=== PATIENT | female | born 1990 | race Caucasian/White ===

== ENCOUNTER → 2017-06-07 13:08 | Observation (INO) ==
--- NOTE | 2017-06-07 11:53 | Discharge Summary ---
Date of Encounter: 06/07/17 Time of Encounter: 11:55 - Discharge Diagnosis (1) Complete placenta previa with hemorrhage, third trimester Priority: Primary Status: Acute Comments: Ms Platt is a 26 year old with a history of a 20 week demise and an that presents by squad to triage with c/o bleeding and leaking of fluid starting at 1030 this morning. She states that she is seen by the clinic at [facility] and was told she has a complete previa. She denies intercourse in the past 48 hours. She states positive movement. She denies headache, visual disturbances, epigastric pain, abdominal pain, and abdominal cramping. She has not had steroids for lung development in this . Discussed POC with Dr Harvey who examined the patient himself. Transfer to [facility] for continuation of care. Betamethasone 12mg IM given CBC drawn and pending IV catheter placed - LR running at 125ml/hr Called [facility] for transfer, spoke with charge nurse who states they are currently full and accepting no patients at this time. She gave me the number to their high risk physician electronics department manager. I called Dr Parikh, the high risk physician with [facility] who did not answer the phone. Called [facility] and spoke with the resident electronics department manager who accepted the transfer. Patient agreeable to transfer to [facility]. (2) 29 weeks gestation of Priority: Secondary Status: Acute (3) complicated by subutex maintenance, antepartum Priority: Secondary Status: Acute Comments: Patient has Rx for subutex and is taking during this (4) Cigarette nicotine dependence Priority: Secondary Status: Acute Comments: Current every day smoker. Qualifiers: Substance use status: uncomplicated Qualified Code(s): F17.210 - Nicotine dependence, cigarettes, uncomplicated - Discharge Medications Home Medications: Buprenorphine HCl [Subutex] 8 mg SL BID 06/07/17 [History] Vit Calc,Iron,Folic [ Vitamins] 1 tab PO DAILY 06/07/17 [ History] Allergies/Adverse Reactions: 3 Allergy/AdvReac Type Severity Reaction Status Date / Time No Known Allergies Allergy Verified 06/07/17 12:01 Date of admission: 06/07/17 11:37 Discharging clinician: Clarissa Ramos Anticipated date of discharge: 06/07/17 - Patient Status Disposition: Transfer Other Condition: Fair Functional capacity at discharge: bed bound Overall status at discharge: patient is not back to baseline - Discharge Instructions Hospital Course INDUCTION BRAZER Time spent discussing smoking cessation with patient: 3 to 10 minutes Time Attestation: Total time spent providing and/or coordinating discharge services: Time Spent: Less than 30 minutes Exam - Constitutional General appearance IM: cooperative, A&O X 3, pleasant - Respiratory Respiratory exam: Present: CTAB - Cardiovascular Cardiovascular exam IM: Present: RRR, +S1, +S2 - GI/Abdominal GI/Abdominal exam IM: normal bowel sounds, soft - Additional comments: Uterus nontender, appropriate for gestational age. Patient states she has a placenta previa. Small amount of zoe and clotted blood noted in the vaginal vault on SSE. No pooling of fluid noted. No cervival exam done. FHTS 160's with moderate variability. No contractions per patient report or toco. Uterus soft and nontender - Extremities Exam Extremities exam IM: Present: normal capillary refill, normal inspection, radial pulses palpable and symmetrical - Neurological Exam Neurological exam: alert, oriented X3, reflexes normal - VTE Reasons for not Prescribing Prophylaxis: Treatment not Indicated - Low risk for VTE
[2017-06-07 12:26] LABS: Basophils % 0.2 %; Eosinophils # 0.2 K/mcL (0.0-0.6); Eosinophils % 1.3 %; Hematocrit 34.8 % (35.3-44.9); Hemoglobin 11.4 g/dL (11.5-15.4); Immature Granulocytes % 0.6 % (0-4); Lymphocytes # 2.4 K/mcL (0.6-4.6); Lymphocytes % 15.8 %; Mean Corpuscular HGB Conc 32.8 g/dL (31.6-35.5); Mean Corpuscular Hemoglobin 28.4 pg (28.0-33.3); Mean Corpuscular Volume 86.8 fL (83.0-100.0); Mean Platelet Volume 9.7 fL (9.4-12.4); Monocytes # 0.8 K/mcL (0.0-1.3); Monocytes % 5.2 %; Neutrophils # 11.5 K/mcL (1.6-8.9); Platelet Count 242 K/mcL (140-400); Red Blood Count 4.01 M/mcL (3.82-4.97); Red Cell Distribution Width 12.6 % (11.5-14.5); Segmented Neutrophils % 76.9 %
[~2017-06-07 13:08] MED LIST: Betamethasone Acet/SodPhos 6 MG/ML MDV IM SCH; Ringers Solution, Lactated 1,000 ML IVC SCH
== END | disposition other institution (70) ==
LOC: 1NENULAB
PROVIDERS: ADMIT Obstetrics & Gynecology; ATTEND Obstetrics & Gynecology

== ENCOUNTER → 2017-06-29 05:02 | Observation (INO) ==
[2017-06-29 03:12] LABS: Basophils % 0.1 %; Eosinophils # 0.2 K/mcL (0.0-0.6); Eosinophils % 1.5 %; Hematocrit 34.1 % (35.3-44.9); Hemoglobin 11.3 g/dL (11.5-15.4); Immature Granulocytes % 0.5 % (0-4); Lymphocytes % 19.5 %; Mean Corpuscular HGB Conc 33.1 g/dL (31.6-35.5); Mean Corpuscular Hemoglobin 28.7 pg (28.0-33.3); Mean Corpuscular Volume 86.5 fL (83.0-100.0); Mean Platelet Volume 9.6 fL (9.4-12.4); Monocytes # 0.9 K/mcL (0.0-1.3); Monocytes % 5.7 %; Neutrophils # 11.3 K/mcL (1.6-8.9); Platelet Count 222 K/mcL (140-400); Red Blood Count 3.94 M/mcL (3.82-4.97); Red Cell Distribution Width 12.8 % (11.5-14.5); Segmented Neutrophils % 72.7 %
--- NOTE | 2017-06-29 03:47 | OB/GYN History & Physical ---
Date of Encounter: 06/29/17 Time of Encounter: 03:15 Assessment and Plan (1) 33 weeks gestation of Current visit: Yes Status: Acute (2) Cigarette nicotine dependence Current visit: No Status: Acute Qualifiers: Substance use status: uncomplicated Qualified Code(s): F17.210 - Nicotine dependence, cigarettes, uncomplicated (3) Complete placenta previa with hemorrhage, third trimester Current visit: No Status: Acute SSE with small trickle. Hgb stable at 11.3. Active fetus with reassuring FHT. Will transfer to [facility]. Accepting physician: Elis Enrique MD, MFM (4) complicated by subutex maintenance, antepartum Current visit: No Status: Acute History of Present Illness Chief complaint: bleeding HPI: Ms. Platt is a 26 year old female presenting at 33 weeks gestation with an EDC of 08/17/17. She reports a known placenta previa with 2 prior bleeds. At around 0225 this am she started bleeding. She reports the blood was running down her legs and she had a few small clots. She states she had a basketball size puddle at home. Upon arrival she has old blood on her legs and feet and her pad had a small amount. She has good movement. She denies contraction but does have some lower abdominal pressure. Past Med Surg Social Fam HX - Past Medical History Medical history: kidney stones Psychiatric history: anxiety, depression, PTSD - Past Surgical History Surgical History: other - Social History Smoking Status: Current every day smoker Packs per day: 0.5 Smokeless Tobacco Status: No Alcohol use: none Drug use: opiates, other - Family History Sister Adopted: No Family Member Ethnicity: Non- Living Status: Still Living Hx Family Cardiac Disorders: No Hx Family Respiratory Disorders: No Hx Family Cancer: No Hx Family GI Disorders: No Hx Family Genitourinary Disorders: No Hx Family Endocrine Disorder: No Hx Family Musculoskeletal Disorders: No Hx Family Neuromuscular Disorders: No Hx Family Neurologic Disorders: No Hx Family HEENT Disorders: No Hx Family Autoimmune Disorders: No Hx Family Reproductive Disorders: No Hx Family Psychosocial Disorders: No Hx Family Medical Disorders: No Obstetrical History - Pregnancies : 4 Para: 1 Term: 1 : 0 Ab's: 2 Livin - History/Complications History/Complications: Previous vaginal delivery at term. Placenta previa with this . Pt reports having 2 courses of betamethasone in this . Medications and Allergies Buprenorphine HCl [Subutex] 8 mg SL BID 06/07/17 [History] Vit Calc,Iron,Folic [ Vitamins] 1 tab PO DAILY 06/07/17 [ History] 3 Allergy/AdvReac Type Severity Reaction Status Date / Time No Known Allergies Allergy Verified 06/07/17 12:01 Review of System OB All systems PM: reviewed and no additional remarkable complaints except as stated Exam - Constitutional Constitutional: well developed, well nourished, mild distress, other (anxious) - HEENT HEENT: Mucus Membranes Moist - Lungs Respiratory exam: CTAB - Cardiovascular Cardiovascular exam: RRR - Abdomen Abdomen: Present: gravid, non tender - Extremities Extremities exam: normal inspection - Uterus Uterus exam: Absent: tender - Comments Comments: SSE with some clot in vaginal vault. Small trickle of blood noted. Results Result Diagrams: 06/29/17 03:00 Abnormal lab results WBC 15.5 K/mcL (4.3-11.1) H 06/29/17 03:00 Hgb 11.3 g/dL (11.5-15.4) L 06/29/17 03:00 Hct 34.1 % (35.3-44.9) L 06/29/17 03:00 Neutrophils # 11.3 K/mcL (1.6-8.9) H 06/29/17 03:00 All other labs normal. - VTE Reasons for not Prescribing Prophylaxis: Treatment not Indicated - Low risk for VTE
[2017-06-29 04:45] LABS: Amphetamine Screen,Urine Negative ng/mL (Cutoff=1000); Barbiturate Screen,Urine Negative ng/mL (Cutoff=200); Benzodiazepines Screen,Urine Negative ng/mL (Cutoff=200); Cannabinoid Screen,Urine Negative ng/mL (Cutoff = 50); Cocaine Screen,Urine Negative ng/mL (Cutoff= 300); Opiate Screen,Urine Negative ng/mL (Cutoff=300); Phencyclidine Screen,Urine Negative ng/mL (Cutoff=25)
[~2017-06-29 05:02] MED LIST changes: -Betamethasone Acet/SodPhos 6 MG/ML MDV IM SCH; -Ringers Solution, Lactated 1,000 ML IVC SCH; +Ringers Solution, Lactated 1,000 ML ONE
== END | disposition other institution (70) ==
LOC: 1NENULAB
PROVIDERS: ADMIT Obstetrics & Gynecology; ATTEND Obstetrics & Gynecology